=== PATIENT | male | born 1960 | race Caucasian/White ===

== ENCOUNTER 2019-05-18 11:56 | Emergency (ER) | payer MEDICARE ==
[~2019-05-18] VITALS: Ht 182.9 cm; Wt 131.1 kg
[~2019-05-18 11:56] MED LIST: AMITIZA8 MCG; BENTYL 10 MG CA10 M1; CARDIZEM CD180 MG; CYMBALTA60 MG; DIOVAN320 MG; HYDROCHLOROTH12.5 M1; HYDROXYZINE PO; JANTOVEN5 MG; KEFLEX500 MG PO; LYRICA PO; MELOXICAM15 MG; METHYLPHENIDATE10 MG; NORCO 5-325 TA1 EACH; PENTASA500 MG; PIOGLITAZONE PO; REXULTI0.5 MG; ROPINIROLE HCL2 MG; SINEMET CR 50/21 TAB; TOPAMAX50 MG; ZENPEP DR 20,01 EACH
[2019-05-18] MEDS ORDERED: BREO ELLIPTA 21 EACH (12:07)
[2019-05-18] MEDS ORDERED: FLECAINIDE ACET50 M1 PO (12:07)
[2019-05-18] MEDS ORDERED: LASIX 80 MG TAB80 MG PO (12:08)
[2019-05-18] MEDS ORDERED: JANTOVEN5 MG PO (12:10)
[2019-05-18] MEDS ORDERED: COZAAR 25 MG TA25 MG PO (12:10)
[2019-05-18] MEDS ORDERED: JANTOVEN7.5 MG PO (12:10)
[2019-05-18] MEDS ORDERED: AMITIZA8 MCG PO (12:11)
[2019-05-18] MEDS ORDERED: TOPROL XL25 MG PO (12:23)
[2019-05-18] MEDS ORDERED: POTASSIUM20 PO (12:25)
[2019-05-18] MEDS ORDERED: TRILEPTAL600 MG PO (12:25)
[2019-05-18] MEDS ORDERED: PROTONIX40 M1 PO (12:25)
[2019-05-18] MEDS ORDERED: OXYCODONE HCL10 MG PO (12:29)
[2019-05-18 12:51] LABS: ABSOLUTE EOSINOPHILS 0.1 thou/uL (0.0-0.7); ABSOLUTE LYMPHOCYTES 1.8 thou/uL (0.8-5.3); ABSOLUTE MONOCYTES 0.4 thou/uL (0.0-1.2); ABSOLUTE NEUTROPHILS 3.7 thou/uL (1.6-8.1); BASOPHILS 0.6 %; EOSINOPHILS 2.1 %; HEMATOCRIT 43.2 % (42.0-52.0); HEMOGLOBIN 14.2 gm/dL (14.0-18.0); MCH 27.7 pg (26.0-34.0); MCV 83.9 fL (80.0-100.0); MONOCYTES 6.7 %; MPV 7.4 fl. (7.2-11.1); NUCLEATED RBCS 0 /100WBC; PLATELET COUNT* 244 thou/uL (150-400); POLYS 61.6 %; RBC 5.15 mil/uL (4.50-6.00); WBC 6.1 thou/uL (4.0-11.0)
[2019-05-18 13:01] LABS: ANION GAP 5 mmol/L (7-16); BUN 6 mg/dL (7-18); CALCIUM 8.5 mg/dL (8.5-10.1); CHLORIDE 99 mmol/L (98-107); CO2 34 mmol/L (21-32); CREATININE 0.8 mg/dL (0.6-1.3); GLUCOSE 155 mg/dL (70-99); POTASSIUM 3.4 mmol/L (3.5-5.1); SODIUM 138 mmol/L (136-145)
[2019-05-18 13:14] LABS: ALBUMIN 3.5 g/dL (3.4-5.0); ALKALINE PHOSPHATASE 138 U/L (46-116); CK-MB MASS 1.7 ng/mL (<0.5-3.6); LIPASE 190 U/L (73-393); MAGNESIUM 1.5 mg/dL (1.8-2.4); NT-PRO BRAIN NAT PEPTIDE 794 pg/mL (<300); SGOT 14 U/L (15-37); SGPT 23 U/L (30-65); TOTAL BILIRUBIN 0.3 mg/dL (<0.1-1.0); TOTAL PROTEIN 7.3 g/dL (6.4-8.2); TROPONIN-I LEVEL <0.06 ng/mL (<0.06)
[2019-05-18 13:20] LABS: INR 3.8; PROTIME 36.7 Seconds (9.20-11.50)
[2019-05-18 13:41] VITALS: BP 133/77
--- NOTE | 2019-05-19 10:33 | EKG ---
[place] [address] ELECTROCARDIOGRAM REPORT Name: ALTAGRACIA GUIDRY [id number] Admission: 05/18/19 Attend Phys: Discharge: 05/18/19 Date of : 64 Report #: [id number] THIS REPORT FOR: //name// [facility] ED Test Date: 2019-05-18 Test Time: 11:58:52 Pat Name: ALTAGRACIA GUIDRY Department: Room: Gender: M Evaluation Advisor: : [id number] Requested By: Ramón Alvarado Order Number: [id number] MD: Meir Hernandez Measurements Intervals [place] Rate: 115 P: 94 ME: 136 QRS: -89 QRSD: 110 T: 67 QT: 371 QTc: 513 Interpretive Statements Atrial tachycardia, cannot rule out atypical flutter with 2:1 conduction Abnormal R-wave progression, late transition Left anterior fascicular block Prolonged QT interval Compared to ECG 01/14/2017 23:46:03 Myocardial infarct finding now present Prolonged QT interval now present Sinus rhythm no longer present Atrial premature complex(es) no longer present Electronically Signed On 05-19-2019 10:33:18 CDT by Meir Hernandez [email or web address] <ELECTRONICALLY SIGNED> By: Meir Hernandez MD, FACC 05/19/19 1033 [id number] Meir Hernandez MD, [facility] /EPI
== END 2019-05-18 13:41 | disposition home or self-care (01) ==
LOC: M.ERS 11:56
PROVIDERS: Family Medicine
DX: R07.89 Other chest pain (principal); K50.90 Crohn's disease, unspecified, without complications; G20 Parkinson's disease; I48.91 Unspecified atrial fibrillation; F17.200 Nicotine dependence, unspecified, uncomplicated; Z88.0 Allergy status to penicillin; Z88.6 Allergy status to analgesic agent; Z86.718 Personal history of other venous thrombosis and embolism; Z86.711 Personal history of pulmonary embolism